=== PATIENT | male | born 1995 | race Caucasian/White ===

== ENCOUNTER 2022-07-20 20:28 | Emergency (ER) | payer BC, SELFPAY ==
[2022-07-20 20:35] VITALS: BP 152/105; PULSE 89; RESP 16; TEMP 36.1; O2SAT 100
--- NOTE | 2022-07-20 20:50 | ED_ITS ---
HPI - General Adult General Chief complaint: Skin/Abscess/Foreign Body Stated complaint: something in ear Time Seen by Provider: 07/20/22 20:33 Source: patient Mode of arrival: ambulatory Limitations: no limitations History of Present Illness HPI narrative: 26 year male coming in today complaining of something stuck in his ear. He states that he was flushing his ears with a ear flush sure that has a tiny plastic tip noted and the plastic tip got stuck in his ear and will come out. He denies any ear drainage. No difficulty hearing. Related Data Home Medications Medication Instructions Recorded Confirmed buspirone 15 mg tablet 15 mg PO BID 07/07/22 07/20/22 cholecalciferol (vitamin D3) 1,250 1,250 mcg PO DAILY 07/07/22 07/20/22 mcg (50,000 unit) capsule diclofenac sodium 1 % topical gel ml topical 07/07/22 07/07/22 lurasidone 40 mg tablet (Latuda) 40 mg PO DAILY 07/07/22 07/20/22 metoprolol tartrate 25 mg tablet 6.25 mg PO BID 07/07/22 07/20/22 mirtazapine 15 mg tablet 7.5 mg PO DAILY 07/07/22 07/20/22 naloxone 4 mg/actuation nasal spray 1 spray intranasal 07/07/22 07/07/22 naltrexone 50 mg tablet 50 mg PO 07/07/22 07/07/22 nicotine (polacrilex) 2 mg gum 2 mg buccal 07/07/22 07/07/22 nicotine 21 mg/24 hr daily patch transdermal 07/07/22 07/07/22 transdermal patch polyethylene glycol 3350 17 17 g PO 07/07/22 07/07/22 gram/dose oral powder sennosides 8.6 mg-docusate sodium tab PO 07/07/22 07/07/22 50 mg tablet (Senexon-S) Allergies Allergy/AdvReac Type Severity Reaction Status Date / Time Sulfa (Sulfonamide Allergy Verified 07/07/22 11:28 Antibiotics) vancomycin Allergy Verified 07/07/22 11:28 Review of Systems Status of ROS: Reports: 6 or more systems reviewed and unremarkable except as noted in History and below [facility] Medical History Sinus infection Social History Smoking Status: Current every day smoker Exam Narrative: Exam Narrative: Well-nourished well-developed patient in no acute distress. Alert and oriented. Answers questions appropriately. Mood and affect are appropriate. Thoughts are goal oriented and rational. No tangential or magical thinking noted. Patient speaks in full sentences without needing to catch Hisbreath. HEENT: Normocephalic atraumatic. Pupils are equally round reactive to light. Extraocular muscles are intact. Conjunctivae are moist without any icterus noted. in the left ear and patient has a small piece a visible plastic inside the ear canal. Const: Vital Signs, click to edit/add: Vital Signs - 24 hr 07/20/22 20:35 Temperature 96.9 F L Pulse Rate [Left P ulse Oximeter] 89 Respiratory Rate 16 Blood Pressure [Ri ght Upper Arm] 152/105 H Pulse Oximetry 100 Oxygen Delivery Me thod Room Air Course Course Hospital Course: An alligator was used to pull out the piece of plastic without difficulty. re- examination of the ear shows an irritated tympanic membrane, no perforation or signs of infection. Vital Signs Vital signs: Initial Vital Signs Temperature 96.9 F L 07/20/22 20:35 Temperature Source Temporal Artery Scan 07/20/22 20:35 Pulse Rate 89 07/20/22 20:35 Pulse Rhythm 07/20/22 20:35 Respiratory Rate 16 07/20/22 20:35 Blood Pressure 152/105 H 07/20/22 20:35 Blood Pressure Mean 120 07/20/22 20:35 Blood Pressure Position Sitting 07/20/22 20:35 Pulse Oximetry 100 07/20/22 20:35 Oxygen Delivery Method 07/20/22 20:35 Vital Signs Temperature 96.9 F L 07/20/22 20:35 Pulse Rate 89 07/20/22 20:35 Respiratory Rate 16 07/20/22 20:35 Blood Pressure 152/105 H 07/20/22 20:35 Pulse Oximetry 100 07/20/22 20:35 Oxygen Delivery Method 07/20/22 20:35 Temperature 96.9 F L 07/20/22 20:35 Pulse Rate 89 07/20/22 20:35 Respiratory Rate 16 07/20/22 20:35 Blood Pressure 152/105 H 07/20/22 20:35 Pulse Oximetry 100 07/20/22 20:35 Oxygen Delivery Method 07/20/22 20:35 Medical Decision Making MDM Narrative Medical decision making narrative: [age] year male with foreign body in his ear , removed per above. Discharge Plan Discharge Clinical Impression: Foreign body in ear Patient Disposition: Home, Self-Care Condition: Improved Prescriptions: No Action lurasidone [Latuda] 40 mg tablet 40 mg PO DAILY mirtazapine 15 mg tablet 7.5 mg PO DAILY Label Comments: TAKE 1 TABLET BY MOUTH AT BEDTIME buspirone 15 mg tablet 15 mg PO BID naltrexone 50 mg tablet 50 mg PO diclofenac sodium 1 % gel topical cholecalciferol (vitamin D3) 1,250 mcg (50,000 unit) capsule 1,250 mcg PO DAILY polyethylene glycol 3350 17 gram/dose powder 17 g PO sennosides-docusate sodium [Senexon-S] 8.6-50 mg tablet PO naloxone 4 mg/actuation spray,non-aerosol 1 spray intranasal nicotine 21 mg/24 hr patch 24 hour transdermal nicotine (polacrilex) 2 mg gum 2 mg buccal metoprolol tartrate 25 mg tablet 6.25 mg PO BID Follow Up/Referrals: Tex Alva MD [Primary Care Provider] - Stand Alone Forms: [employer] Info Instructions
== END 2022-07-20 21:05 | disposition home or self-care (01) ==
LOC: ED 21:01
PROVIDERS: Emergency Provider Family Medicine; PCP Family Medicine
DX: T16.2XXA Foreign body in left ear, initial encounter (principal)
CPT/HCPCS: 69200; 99283

== ENCOUNTER 2022-08-12 17:01 | Emergency (ER) | payer BC, SELFPAY ==
[2022-08-12] VITALS (31 sets, daily range): BP systolic 85–144; BP diastolic 28–97; PULSE 71–109; RESP 16–26; TEMP 36.7; O2SAT 97–100; BMI 21.0
--- NOTE | 2022-08-12 17:08 | CRLHL7_ITS ---
For Patients: As a result of the Century Cures Act, medical imaging exams and procedure reports are released immediately into your electronic medical record. You may view this report before your referring provider. If you have questions, please contact your health care provider. INDICATION: Head injury, facial wound TECHNIQUE: CT maxillofacial without contrast. COMPARISON: None FINDINGS: Facial bones: There is a fracture of the anterior wall of the left external auditory canal extending into the left temporomandibular joint, into the left temporal bone extending and through the middle ear and left mastoid air cells. Orbits and globes: Unremarkable. Globes are intact. No sign of intraorbital hemorrhage or emphysema. Sinuses: Fluid within the left middle ear and left mastoid air cells consistent with the known temporal bone fracture. Fluid in the right sphenoid sinus. Mucous retention cyst right maxillary sinus. Soft tissues: Subcutaneous air consistent with the patient`s left mastoid fracture. Small pneumocephalus. IMPRESSION: 1. Fracture of the left temporal bone extending through the left middle ear, left mastoid air cells and to the anterior wall of the left external auditory canal. Small pneumocephalus noted. Please note that all CT scans at this facility use dose modulation, iterative reconstruction, and/or weight-based dosing when appropriate to reduce radiation dose to as low as reasonably achievable. Dictated by Gomez Villafuerte MD @ 08/12/2022 6:12:45 PM (Electronically Signed)
--- NOTE | 2022-08-12 17:08 | CRLHL7_ITS ---
For Patients: As a result of the Century Cures Act, medical imaging exams and procedure reports are released immediately into your electronic medical record. You may view this report before your referring provider. If you have questions, please contact your health care provider. INDICATION: Head injury. TECHNIQUE: CT head without contrast. COMPARISON: None. FINDINGS: CSF spaces: Within normal limits for age. Brain parenchyma: The segal-white differentiation is normal. No sign of mass, hemorrhage, or midline shift. Trace pneumocephalus. Skull base and calvarium: Please refer to separate CT face regarding facial findings as well as description of the left temporal bone and mastoid fracture. The visualized orbits are grossly unremarkable. IMPRESSION: 1. Trace pneumocephalus. No acute intracranial hemorrhage or mass effect. 2. Please refer to separate CT face regarding facial findings as well as description of the left temporal bone and mastoid fracture. Please note that all CT scans at this facility use dose modulation, iterative reconstruction, and/or weight-based dosing when appropriate to reduce radiation dose to as low as reasonably achievable. Dictated by Justin Ward MD @ 08/12/2022 6:26:29 PM (Electronically Signed)
[2022-08-12] MEDS: 0.9 % SODIUM CHLORIDE 1000 ml 1,000 ML IV (18:00)
--- NOTE | 2022-08-12 18:27 | ED.NURSE ---
has had some bleeding from his left ear. father at bs. is alert and oriented. gcs 15.
--- NOTE | 2022-08-12 18:31 | ED.NURSE ---
last tetanus was 09/07/2015.
[2022-08-12] MEDS: fentaNYL 100 MCG/2 ML inj 50 MCG IVP (19:45)
[2022-08-12] MEDS: ACETAMINOPHEN 500 MG TABLET 1000 MG PO (19:47)
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
== END 2022-08-12 22:21 | disposition home or self-care (01) ==
PROVIDERS: Emergency Provider Family Medicine; PCP Family Medicine
DX: S01.111A Laceration without foreign body of right eyelid and periocular area, initial encounter (principal); H60.02 Abscess of left external ear; S02.19XA Other fracture of base of skull, initial encounter for closed fracture
CPT/HCPCS: 12011; 70450; 70486; 87070; 87186; 96374; 99284; 99291; A9270; J3010; J7030

== ENCOUNTER 2025-03-09 10:06 | Emergency (ER) | payer BC, SELFPAY ==
--- OUTSIDE RECORDS SUMMARY | 2025-03-02 12:00 | XMS_ITS | Encounter Summary ---
[facility] Address [address] [address] Care Team Providers Care Furrier Apprentice Name Role Phone Sylvie Pritchett MD Primary Care Provider [phone] Reason for Visit * Reason Comments Laceration Encounter Details Date Type Department Care Team (Late st Contact Info) Description 03/02/2025 12:00 PM CDT [facility] [address] [place] [address] [place] [address] [place] [address] Laceration of left hand without [...] encounter documented in this encounter Care Teams Furrier Apprentice Relationship Specialty Start Date End Date Sylvie Pritchett MD [address] [place] [address] PCP - General 08/26/10 documented as of this encounter
--- OUTSIDE RECORDS SUMMARY | 2025-03-09 10:09 | XMS_ITS | CCD ---
Author Name Interface, [id number] Address [address] [place] [address] [facility] Address [address] [place] [address] Reason for Visit Social History Date Name Value 12/04/2023 Sex Male
--- OUTSIDE RECORDS SUMMARY | 2025-03-09 10:09 | XMS_ITS | Clinical Summary ---
Author Organization [facility] Address [address] [place] [address] Care Team Providers Care Hourly Manager Name Role Phone Sylvie Pritchett MD Primary Care Provider [phone] Source Comments You are receiving this document as you are listed as the primary care provider,follow-up provider, or the patient has been referred to you for consultation.This is in compliance with the Medicare and[facility] Hospital[facility] EHR Incentive Program,which states Providers who transition their patient to another setting of careor provider of care or refers their patient to another provider of care shouldprovide summary care record for each transition of care or referral. 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 02/24/20 25 Active lurasidone (LATUDA) 80 MG tablet Take 1 Tablet (80 mg) by mouth daily. 02/25/20 25 Active mirtazapine (REMERON) 15 MG tablet Take 1-2 Tablets (15-30 mg) by mouth at bedtime as needed. 12/22/19 25 Active mirtazapine (REMERON) 45 MG tablet Take 1 Tablet (45 mg) by mouth daily at bedtime. 02/23/20 25 Active nicotine (NICODERM CQ) 21 MG/24HR patch 1 Patch daily. 02/16/20 25 Active ondansetron (ZOFRAN-ODT) 4 MG disintegrating tablet Take 1 Tablet (4 mg) by mouth three times a day as needed. 09/30/19 25 Active QUEtiapine (SEROQUEL) 100 MG tablet Take 1 Tablet (100 mg) by mouth daily at bedtime. 11/29/19 25 Active QUEtiapine (SEROQUEL) 25 MG tablet Take 1-2 Tablets (25-50 mg) by mouth daily as needed. 10/27/19 25 Active QUEtiapine (SEROQUEL) 50 MG tablet Take 1-2 Tablets (50-100 mg) by mouth at bedtime as needed. 02/21/20 25 Active DIRECTOR OF STUDENT AID THYROID 30 MG tablet Take 1 Tablet (30 mg) by mouth daily. Active testosterone cypionate (DEPO-TESTOSTERON E) 200 MG/ML injection Inject 1 mL (200 mg) intramuscularly every 14 days. Active traZODone (DESYREL) 50 MG tablet Take 1-2 Tablets (50-100 mg) by mouth daily at bedtime. 11/26/19 25 Active hydrOXYzine HCl (ATARAX) 50 MG tablet Take 1-2 Tablets (50-100 mg) by mouth daily as needed. 12/22/19 25 Active HYDROcodone-aceta minophen (NORCO) 10-325 MG tablet Take 1 Tablet by mouth two times daily as needed. 02/22/20 25 Active gabapentin (NEURONTIN) 100 MG capsule Take 1-2 Capsules (100-200 mg) by mouth daily as needed. 02/23/20 25 Active SUBOXONE 12-[address] under tongue two times a day. 02/24/20 25 Active Encounters Date Type Department Care Team Description 03/02/2025 12:00 PM CDT [facility] [address] [place] [address] Agusto Mandel MD Laceration of left hand without foreign body, initial encounter from Last 3 Months Immunizations Immunization Administration Dates Next Due DT Ped 09/10/2000,06/09/2000 Flu Vac (3+ yrs) 08/05/2007 Flu Vac Preserv Free (3+yrs) 03/02/2013 [id number] 04/26/2009 HepB Ped/Adol (0-18 yrs) 12/10/2001,09/10/2000,0 06/09/2000 Hib (ActHIB) 09/10/2000,06/09/2000 Hib, Unspecified Formulation 01/26/2003,12/11/19 02 Hib/HBV 12/10/2001 IPV (Polio) 01/26/2003, 2,09/10/2000,06/09/19 01 Influenza, Unspecified Formulation 05/05/2012 MMR 01/26/2003,12/10/2001 Moderna Monovalent 12+ 10/10/2020,09/12/2020 PCV20 ([id number]) 07/11/2022 PPSV23 (Pneumovax) 06/09/2000 Td (7+ yrs) 03/02/2025 Tdap 09/07/2015 Social History Tobacco Use Types Packs/Day Years Used Date Smoking Tobacco: Every Day Cigarettes Tobacco Cessation:Ready to Q uit: Not Asked; Counseling Given: Not Answered Sex and Gender Information Value Date Recorded Sex Assigned at Not on file Legal Sex Male 9:51 AM CDT Gender Identity Not on file Sexual Orientation Not on file Last Filed Vital Signs Vital Sign Reading Time Taken Comments Blood Pressure 133/104 03/02/2025 12:16 PM CDT Pulse 114 03/02/2025 12:16 PM CDT Temperature 37 C (98.6 F) 03/02/2025 12:16 PM CDT Respiratory Rate 14 03/02/2025 12:1 6 PM CDT Oxygen Saturation 98% 03/02/2025 12: 16 PM CDT Inhaled Oxygen Concentration - - Weight 32.5 kg (71 lb 9.3 oz) 07/02/2005 8:28 AM BUILDING COMPONENTS DESIGNER C: 32.5kg Height 135.3 cm (4' 5.25) 07/02/2005 8:28 AM CS T C: 135.3cm Body Mass Index 17.75 07/02/2005 8:28 AM BUILDING COMPONENTS DESIGNER Plan of Treatment Health Maintenance Due Date Last Done Comments Hep C Screening (Preventive Services) 1994 HIV Screening (Preventive Services) 2010 Adult Preventive Visit 2012 HPV Vaccine (1 - 3-dose SCDM series) 2021 COVID-19 Vaccine (3 - season) 2025 10/10/2020, 09/12/2020 Influenza Vaccine (#1) 2025 3, 05/05/2012, 08/05/2007 DTaP/Tdap/Td Vaccine (5 - Tdap) 03/02/2035 03/02/2025, 09/07/2015, 09/10/2000, Additional history exists Zoster/Shingles Vaccine (1 of 2) 2044 HepB Vaccine Completed 12/10/2001, 11/23, 09/10/2000, Additional history exists Hib Vaccine Aged Out 01/26/2003, 11/23, 12/10/2001, Additional history exists No longer eligible based on patient's age to complete this topic IPV (Polio) Vaccine Completed 01/26/2003, 12/10/2001, 09/10/2000, Additional history exists Pneumococcal Vaccine Completed 07/11/2022, 06/09/19 HepA Vaccine Aged Out No longer eligi ble based on patient's age to complete this topic MCV4 Vaccine Aged Out No longer eligi ble based on patient's age to complete this topic Meningococcal B Vaccine Aged Out No l onger eligible based on patient's age to complete this topic Insurance P Care Teams Hourly Manager Relationship Specialty Start Date End Date Sylvie Pritchett MD [address] [place] [address] PCP - General 08/26/10
--- OUTSIDE RECORDS SUMMARY | 2025-03-09 10:10 | XMS_ITS | Clinical Summary ---
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 diclofenac topical (VOLTAREN) 1 % gel 07/04/19 23 Active polyethylene glycoL (MIRALAX) 17 gram/scoop powder 07/04/19 23 Active Senexon-S 8.6-50 mg tablet 07/04/19 23 Active metoprolol tartrate (LOPRESSOR) 25 mg tabletIndication s:Tachycardia TAKE 1/4 TABLET(6.25 MG) BY MOUTH IN THE MORNING AND IN THE EVENING 45 Tablet 10/29/19 23 Active Suboxone 12-[address] 1 Film under the tongue once daily. 01/11/20 23 Active Latuda 40 mg tabletIndication s:Schizophrenia, unspecified type (HC) Take 1.5 Tablets (60 mg) by mouth with dinner. 30 Tablet 01/18/20 23 Active traZODone (DESYREL) 50 mg tabletIndication s:Sleeping difficulty Take 1-2 Tablets (50-100 mg) by mouth at bedtime. 100 Tablet 3 01/18/20 23 Active Testosterone (Testim) 50 mg/5 gram (1 %) gelIndications:L ow testosterone Apply daily to clean dry intact skin of shoulder, upper arms or abdomen. Do NOT apply to genitals. 5 g 5 05/10/20 24 Active EXPERIMENTAL PHYSICIST Thyroid 30 mg tabletIndication s:Hypothyroidism , unspecified type TAKE 1 TABLET BY MOUTH EVERY DAY 30 Tablet 2 01/04/20 25 Active testosterone cypionate (DEPO-TESTOSTERO NE) 200 mg/mL oil injectionIndicat ions:Low testosterone INJECT 1 ML INTRAMUSCULAR EVERY 2 WEEKS FOR LOW TESTOSTERONE 2 mL 5 01/21/20 25 Active Active Problems Problem Noted Date Diagnosed Date Schizophrenia, unspecified type 03/30/2024 Fabian Parkinson White pattern seen on electrocar diogram 01/17/2023 Tobacco dependence 12/25/2021 Alcohol withdrawal 12/23/2021 Social anxiety disorder 02/01/2016 MAURI (generalized anxiety disorder) 02/01/2016 Unspecified hypothyroidism 04/23/2010 Left ventricular dysfunction 04/23/2010 Overview (04/23/2010): Due to anthracycline Depression Resolved Problems Problem Noted Date Diagnosed Date Resolved Date Severe episode of recurrent major depressive disorder, without psychotic features 02/01/2016 Adjustment disorder with mix ed disturbance of emotions and conduct 10/14/2010 12/23/2021 Growth hormone deficiency 04/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 [address] [place] [phone] Samy Fierro MD Refill Request (Testosterone Cypionate) 01/01/[address] [facility] [address] [phone] Laposky, Samy, MD Refill Request (Leasing Professional Thyroid) from Last 3 Months Immunizations Immunization Administration Dates Next Due COVID-19 vaccine (Moderna 100mcg/0.5mL) PF, MDV 10/10/2020,09/12/2020 DT (Age < 7 years) 09/10/2000,06/09/2000 HIB PRP-T (ActHIB,Hiberix) 09/10/2000,06/09/2000 HIB-HepB (Comvax) 12/10/2001 Hepatitis B (Peds) 12/10/2001,09/10/2000, 001 Hepatitis B, Unspecified 09/10/2000,06/09/2000 Hib Conjugate, Unspecified 01/26/2003,,09/10/2000,2000 Inactivated Polio Vaccine 01/26/2003,,09/10/2000,2000 Influenza A (H1N1), Inactivated 04/26/2009 Influenza Virus, Unspecified 05/05/2012 Influenza, IIV3 (Age 6-35 mos) 03/02/2013 Influenza, IIV3 (Age >=3 years) 08/05/2007 Influenza, IIV4 04/26/2009 MMR 01/26/2003,12/10/2001 Pneumococcal Conj 20-valent (Prevnar 20) 07/11/2022 Pneumococcal Poly,23-Valent (Pneumovax) 06/09/2000 Td (Age >=7 Years) 01/26/2003, 2,09/10/2000,2000 Tdap 09/07/2015 Family History Medical History Relation Name Comments Asthma Father Cancer-colon No Family History Diabetes No Family History Heart Disease No Family History Hyperlipidemia No Family History Relation Name Status Comments Brother Alive Father Alive Mother Alive Sister 1 Alive Sister 2 Alive Social History Tobacco Use Types Packs/Day Years Used Date Smoking Tobacco: Every Day Cigarettes 0.5 13.8 Started: 2011 Smokeless Tobacco: Current Chew Tobacco Cessation:Ready to Q uit: Yes; Counseling Given: No Comments:Cewing tobacco every once in a while. Alcohol Use Standard Drinks/Week Comments Not Currently 0 (1 standard drink = 0.6 oz pur e alcohol) PHQ-2 Answer Date Recorded PHQ-2 TOTAL SCORE 5 03/29/2024 Social Connections Answer Date Recorded Do you often feel lonely or isolated from those around you? 0 03/29/2024 Financial Resource Strain Answer Date R ecorded Difficulty of Paying Living Expenses 3 01/17/2023 Difficulty of Paying Living Expenses Not on file 01/17/2023 Food Insecurity Answer Date Recorded Do you worry your food will run out before you are able to buy more? 1 03/29/2024 Transportation Needs Answer Date Record ed Does lack of transportation keep you from medica l appointments? 1 03/29/2024 Does lack of transportation keep you from work, meetings or getting things that you need? 1 03/29/2024 Housing Stability Answer Date Recorded What is your housing situation today? 1 03/29/2024 Utilities Answer Date Recorded Do you have trouble paying f or utilities (for example, heat, electricity, water, phone)? 1 03/29/2024 Sex and Gender Information Value Date Recorded Sex Assigned at Not on file Legal Sex Male 5:20 AM PEDIATRIC SPEECH THERAPIST Gender Identity Not on file Sexual Orientation Not on file Obstetrics History Last Filed Vital Signs Vital Sign Reading Time Taken Comments Blood Pressure 132/78 03/29/2024 2:03 PM PEDIATRIC SPEECH THERAPIST Pulse 113 03/29/2024 2:03 PM PEDIATRIC SPEECH THERAPIST Temperature 36.7 C (98.1 F) 03/29/2024 2:03 PM PEDIATRIC SPEECH THERAPIST Respiratory Rate 16 03/29/2024 2:03 PM PEDIATRIC SPEECH THERAPIST Oxygen Saturation 99% 03/29/2024 2:03 PM PEDIATRIC SPEECH THERAPIST Inhaled Oxygen Concentration - - Weight 71.2 kg (157 lb) 03/29/2024 2:03 PM PEDIATRIC SPEECH THERAPIST Height 167.6 cm (5' 6) 03/29/2024 2:03 PM PEDIATRIC SPEECH THERAPIST Body Mass Index 25.34 03/29/2024 2:03 PM PEDIATRIC SPEECH THERAPIST Plan of Treatment Health Maintenance Due Date Last Done Comments HIV for age 15-65 2009 Hepatitis C screening for ag e 18-79 2012 HPV series for age 9-45 (1 - 3-dose SCDM series) 2021 COVID-19 vaccine series ( - season) 2025 10/10/2020, 09/12/2020 Influenza Vaccine (#1) 2025 3, 05/05/2012, 04/26/2009, Additional history exists BMI (ht and wt on same day) for age 18+ 03/29/2025 03/29/2024, 12/05/2023, 02/25/2022, Additional history exists Depression screening for age 12+ 04/02/2025 04/02/2024, 04/01/2024, 03/31/2024, Additional history exists Tetanus booster 09/06/2025 09/07/2015, 07/2002, 12/10/2001, Additional history exists RSV vaccine for adults or (1 - 1-dose 75+ series) 2069 Hepatitis B series for 19+ Completed 12/10, 12/10/2001, 09/10/2000, Additional history exists Pneumococcal series for age 6-49 Completed 07/11/19, 06/09/2000 Insurance [place] [phone] [place] [address] [place] [phone] [place] [address] [place] [address] Advance Directives * Full Code (Latest Code Status on File) Date Activated Date Inactivated Comments 12/23/2021 4:09 PM 12/27/2021 12:25 PM Question Answer Comments Code Status Discussion: Other (specify in commen ts): * Full Code Date Activated Date Inactivated Comments 10/14/2010 4:13 PM 10/17/2010 3:02 PM Care Teams Mortgage Funder Relationship Specialty Start Date End Date Samy Fierro MD [address] [id number] PCP - General Family Practice 07/08/24
[2025-03-09 10:32] VITALS: BP 153/97; PULSE 107; RESP 18; TEMP 37; O2SAT 93; BMI 29.1
--- NOTE | 2025-03-09 11:28 | ED.UPPEXIN ---
HPI - Extremity Injury (Upper) General Chief Complaint: Extremity Pain/Injury, Upper Stated Complaint: L hand infections Time Seen by Provider: 03/09/25 11:13 History of Present Illness HPI narrative: This 29-year-old male comes in with pain and swelling and erythema in his left hand. He states that he accidentally cut his hand near the 5th MP joint about a week ago. He had stitches placed. Since then he developed swelling and the stitches opened up and there was some drainage. He also had pain and redness and swelling in his left thumb. The skin on his thumb is opened and drained some purulent fluid also. He does not report any fevers. He states that he is otherwise in good health. Related Data Home Medications ?Medication ?Instructions ?Recorded ?Confirmed diclofenac sodium 1 % topical gel 2 g topical DAILY PRN 07/07/22 01/29/24 metoprolol tartrate 25 mg tablet 6.25 mg PO BID 07/07/22 03/09/25 naloxone 4 mg/actuation nasal spray 1 spray intranasal 07/07/22 01/29/24 naltrexone 50 mg tablet 50 mg PO Q24H 07/07/22 01/29/24 nicotine (polacrilex) 2 mg gum 2 mg buccal Q8H PRN 07/07/22 01/29/24 nicotine 21 mg/24 hr daily 1 patch transdermal DAILY 07/07/22 01/29/24 transdermal patch polyethylene glycol 3350 17 17 g PO DAILY PRN 07/07/22 01/29/24 gram/dose oral powder sennosides 8.6 mg-docusate sodium 1 tab-cap PO DAILY 07/07/22 01/29/24 50 mg tablet (Senexon-S) lurasidone 60 mg tablet (Latuda) 80 mg PO QPM 08/12/22 03/09/25 buprenorphine 12 mg-naloxone 3 mg 1 film buccal DAILY 03/09/25 03/09/25 sublingual film (Suboxone) gabapentin 100 mg capsule 100 - 200 mg PO DAILY PRN 03/09/25 03/09/25 hydrocodone-acetaminophen .ROUTE 03/09/25 mirtazapine 15 mg tablet mg HS 03/09/25 quetiapine 100 mg tablet 100 mg PO QPM 03/09/25 quetiapine 50 mg tablet 50 - 100 mg PO QPM PRN 03/09/25 03/09/25 testosterone cypionate 200 mg/mL 200 mg IM Q2W 03/09/25 03/09/25 intramuscular oil thyroid (pork) 30 mg tablet (MANUFACTURING SUPERVISOR 2ND SHIFT 30 mg PO DAILY 03/09/25 03/09/25 Thyroid) Previous Rx's ?Medication ?Instructions ?Recorded tobramycin 0.3 %-dexamethasone 0.1 4 drp ophthalmic (eye) TID 10 days 09/11/22 % eye drops,suspension (TobraDex) #10 mL fluticasone propionate 50 2 spray intranasal QDAY 30 days 01/29/24 mcg/actuation nasal #16 grams spray,suspension amoxicillin 875 mg-potassium 1 tab PO BID #14 tabs 03/09/25 clavulanate 125 mg tablet hydrocodone 5 mg-acetaminophen 325 1 tab PO Q4-6H PRN pain #10 tabs 03/09/25 mg tablet Allergies Allergy/AdvReac Type Severity Reaction Status Date / Time Sulfa (Sulfonamide Allergy Verified 03/09/25 10:44 Antibiotics) vancomycin Allergy Verified 03/09/25 10:44 Review of Systems Status of ROS: Reports: 10 or more systems reviewed and unremarkable except as noted in History and below Narrative: Constitutional: No fevers, no weight gain or loss. Eyes: No discharge. No vision changes. HENT: No congestion, no sore throat, no ear pain. Cardiovascular: No chest pain, no palpitations. Respiratory: No shortness of breath, no wheezes, no cough. Gastrointestinal: No abdominal pain, no vomiting, no diarrhea. Genitourinary: No dysuria, no hematuria. Musculoskeletal: Normal range of motion. Left hand has significant swelling with marked erythema of his thumb. The thumb has an opening on the distal portion where apparently some drainage had occurred but none currently. There is a laceration and near the 5th MP joint that is slightly open and not currently draining. Skin: No rashes, no pruritis. Neurological: No dizziness, weakness, sensory change, speech change. Endo/Heme/Allergies: No bruising or bleeding. No polydipsia. Pysch: no suicidality, no anxiety, no insomnia. All other systems reviewed and are negative. [facility] Medical History Sinus infection Social History Smoking Status: Current every day smoker What tobacco products do you use: cigarettes Smoking packs per day: 0.5 Smoking cigarettes per day: 10.0 Years smoked: 11 Smoking pack-years: 5.50 Do you use any of these nicotine containing products: None Second hand tobacco smoke exposure: Yes How often do you have a drink containing alcohol: monthly or less How many standard drinks containing alcohol do you have on a typical day: 1 or 2 How often do you have six or more drinks on one occasion: Never AUDIT-C Alcohol total score: 1 Non-prescribed substance use: marijuana (any form) and amphetamines/methamphetamines Non-prescribed substance use details: [facility] service: No Exam Const: Vital Signs, click to edit/add: Vital Signs - 24 hr 03/09/25 10:32 Temperature 98.6 F Pulse Rate [Right Pulse Oximeter] 107 H Respiratory Rate 18 Blood Pressure [Ri ght Upper Arm] 153/97 H Pulse Oximetry 93 Oxygen Delivery Me thod Room Air Course Vital Signs Vital signs: Initial Vital Signs Temperature 98.6 F 03/09/25 10:32 Temperature Source Temporal Artery Scan 03/09/25 10:32 Pulse Rate 107 H 03/09/25 10:32 Respiratory Rate 18 03/09/25 10:32 Blood Pressure 153/97 H 03/09/25 10:32 Blood Pressure Mean 115 H 03/09/25 10:32 Blood Pressure Position Sitting 03/09/25 10:32 Pulse Oximetry 93 03/09/25 10:32 Oxygen Delivery Method Room Air 03/09/25 10:32 Vital Signs Temperature 98.6 F 03/09/25 10:32 Pulse Rate 107 H 03/09/25 10:32 Respiratory Rate 18 03/09/25 10:32 Blood Pressure 153/97 H 03/09/25 10:32 Pulse Oximetry 93 03/09/25 10:32 Oxygen Delivery Method Room Air 03/09/25 10:32 Temperature 98.6 F 03/09/25 10:32 Pulse Rate 107 H 03/09/25 10:32 Respiratory Rate 18 03/09/25 10:32 Blood Pressure 153/97 H 03/09/25 10:32 Pulse Oximetry 93 03/09/25 10:32 Oxygen Delivery Method Room Air 03/09/25 10:32 MDM - Extremity Injury (Upper) MDM Narrative Medical decision making narrative: This patient has infection in his right hand secondary to a wound. He has significant pain and swelling. There is no extension of symptoms beyond his hand. He has normal vital signs. I did advise him regarding worsening signs and symptoms that would indicate need for return re-evaluation. He did receive prescription for Augmentin and some tablets of [place]. Discharge Plan Discharge Clinical Impression: Wound infection Patient Disposition: Home, Self-Care Condition: Unchanged Additional Instructions: Take medication as prescribed. Follow up with MD return if worsening symptoms occur. Prescriptions: New hydrocodone-acetaminophen 5-325 mg tablet 1 tab PO Q4-6H PRN (Reason: pain) Qty: 10 0RF amoxicillin-pot clavulanate 875-125 mg tablet 1 tab PO BID Qty: 14 0RF No Action fluticasone propionate 50 mcg/actuation spray,suspension 2 spray intranasal QDAY 30 Days Qty: 16 11RF Rx Instructions: administer into each nostril naltrexone 50 mg tablet 50 mg PO Q24H diclofenac sodium 1 % gel 2 g topical DAILY PRN polyethylene glycol 3350 17 gram/dose powder 17 g PO DAILY PRN sennosides-docusate sodium [Senexon-S] 8.6-50 mg tablet 1 tab-cap PO DAILY naloxone 4 mg/actuation spray,non-aerosol 1 spray intranasal nicotine 21 mg/24 hr patch 24 hour 1 patch transdermal DAILY nicotine (polacrilex) 2 mg gum 2 mg buccal Q8H PRN metoprolol tartrate 25 mg tablet 6.25 mg PO BID tobramycin-dexamethasone [TobraDex] 0.3-0.1 % drops,suspension 4 drp ophthalmic (eye) TID 10 Days Qty: 10 2RF Rx Instructions: 4 drops to left ear three times a day for 10 days lurasidone [Latuda] 60 mg tablet 80 mg PO QPM buprenorphine-naloxone [Suboxone] 12-3 mg film 1 film buccal DAILY quetiapine 100 mg tablet 100 mg PO QPM mirtazapine 15 mg tablet HS testosterone cypionate 200 mg/mL oil 200 mg IM Q2W quetiapine 50 mg tablet 50 - 100 mg PO QPM PRN thyroid (pork) [MANUFACTURING SUPERVISOR 2ND SHIFT Thyroid] 30 mg tablet 30 mg PO DAILY hydrocodone-acetaminophen .ROUTE gabapentin 100 mg capsule 100 - 200 mg PO DAILY PRN Follow Up/Referrals: Ailabouni,Tex D, MD [Staff Physician, Family Practice] Stand Alone Forms: [employer] Info Instructions
--- OUTSIDE RECORDS SUMMARY | 2025-03-09 11:34 | XMS_ITS | CCD ---
Author Name Interface, [id number] lity Address [address] [place] [id number] [facility] Address [address] [place] [address] Reason for Visit Social History Date Name Value 12/04/2023 Sex Male
--- OUTSIDE RECORDS SUMMARY | 2025-03-09 11:34 | XMS_ITS | CCD ---
Author Name Interface, [id number] lity Address [address] [place] [address] [facility] Address [address] [place] [id number] Reason for Visit Social History Date Name Value 12/04/2023 Sex Male
== END 2025-03-09 11:52 | disposition home or self-care (01) ==
PROVIDERS: Emergency Provider Emergency Medicine Emergency Medical Services
DX: T81.41XA Infection following a procedure, superficial incisional surgical site, initial encounter (principal); Y84.8 Other medical procedures as the cause of abnormal reaction of the patient, or of later complication, without mention of misadventure at the time of the procedure
CPT/HCPCS: 99283; 99284

== ENCOUNTER 2025-03-16 14:44 | Emergency (ER) | payer BC, SELFPAY ==
--- OUTSIDE RECORDS SUMMARY | 2025-03-02 12:00 | XMS_ITS | Encounter Summary ---
[facility] Organization [facility] Address [address], [place] [address] Care Team Providers Care Doll Eye Setter Name Role Phone Sylvie Pritchett MD Primary Care Provider [phone] Reason for Visit * Reason Comments Laceration Encounter Details Date Type Department Care Team (Late st Contact Info) Description 03/02/2025 12:00 PM CDT [facility] [address] [place] [address] [place] [address] [place] [address] Laceration of left hand without foreign body, initial encounter Social History Tobacco Use Types Packs/Day Years Used Date Smoking Tobacco: Every Day Cigarettes Tobacco Cessation:Ready to Q uit: Not Asked; Counseling Given: Not Answered Sex and Gender Information Value Date Recorded Sex Assigned at Not on file Legal Sex Male 9:51 AM CDT Gender Identity Not on file Sexual Orientation Not on file documented as of this encounter Last Filed Vital Signs Vital Sign Reading Time Taken Comments Blood Pressure 133/104 03/02/2025 12:16 PM CDT Pulse 114 03/02/2025 12:16 PM CDT Temperature 37 C (98.6 F) 03/02/2025 12:16 PM CDT Respiratory Rate 14 03/02/2025 12:16 PM CDT Oxygen Saturation 98% 03/02/2025 12:16 PM CDT Inhaled Oxygen Concentration - - Weight - - Height - - Body Mass Index - - documented in this encounter Progress Notes * Agusto Mandel MD - 03/02/2025 12:00 PM CDT Patient presents to Urgent Care with a laceration/wound to the left hand. Laceration/Wound location: left hand. Pain is 3/10. Injury occurred: Today at approximately 1100. The laceration/wound was caused by knife, dirty. Cutting cardboard. Loss of consciousness? If yes, note length: No. Tetanus Status: < 10 years ago. Blood thinners/anticoagulants?: No . Work related?: No . Is the wound actively bleeding?: No . If yes, was a pressure dressing applied?: Yes . Patient requests an excuse letter for work/school: Leila Gibbons R.N. 03/02/2025 12:13 PM SUBJECTIVE: 29 y.o. male sustained laceration of hand 2 hours ago. Nature of injury: With cleaned knife. Tetanus vaccination status reviewed: Td vaccination indicated and given today. OBJECTIVE: Patient appears well, vitals are normal. Laceration 5 cm noted. Description: clean wound edges, no foreign bodies. Neurovascular and tendon structures are intact. Neurological that is intact pulse normal no indication that is involvement of nerve ,tendon or vascular component ASSESSMENT: Laceration as described. Was stitch it with 4-0 Ethilon P 2 PLAN: Anesthesia with 1% Lidocaine without Epinephrine. Wound cleansed, debrided of visible foreign material and necrotic tissue, and sutured. Antibiotic ointment and dressing applied. Wound care instructions provided. Observe for any signs of infection or other problems. Return for suture removal in 11 days. Keep it dry clean apply Vaseline on it concern come back anytime otherwise remove the suture as above documented in this encounter Nursing Notes * Adriana Gleason RN - 03/02/2025 12:00 PM CDT Patient presents to Urgent Care with a laceration/wound to the left hand. Laceration/Wound location: left hand. Pain is 3/10. Injury occurred: Today at approximately 1100. The laceration/wound was caused by knife, dirty. Cutting cardboard. Loss of consciousness? If yes, note length: No. Tetanus Status: < 10 years ago. Blood thinners/anticoagulants?: No . Work related?: No . Is the wound actively bleeding?: No . If yes, was a pressure dressing applied?: Yes . Patient requests an excuse letter for work/school: No Adriana Gibbons R.N. 03/02/2025 12:13 PM documented in this encounter Plan of Treatment Not on file documented as of this encounter Visit Diagnoses Diagnosis Laceration of left hand without foreign body, initial encounter documented in this encounter Care Teams Doll Eye Setter Relationship Specialty Start Date End Date Sylvie Pritchett MD [address] [place] [address] PCP - General 08/26/10 documented as of this encounter
--- OUTSIDE RECORDS SUMMARY | 2025-03-16 14:48 | XMS_ITS | CCD ---
Author Name Interface, [id number] lity Address [address] [place] [address] [facility] Address [address] [place] [address] Reason for Visit Social History Date Name Value 12/04/2023 Sex Male
--- OUTSIDE RECORDS SUMMARY | 2025-03-16 14:48 | XMS_ITS | Clinical Summary ---
Author Organization [facility] Address [address] [place] [id number] Care Team Providers Care Knot Picker Cloth Name Role Phone Samy Fierro MD Primary Care Provider Allergies Active Allergy Reactions Criticality Noted Date Comments Sulfa (Sulfonamide Antibiotics) Rash 03/27 Vancomycin 09/23/2008 Tuan Syndrome Medications * This document contains information received from the source organization and may not represent a complete record from that organization. diclofenac topical (VOLTAREN) 1 % gel 023 Active polyethylene glycoL (MIRALAX) 17 gram/scoop powder 023 Active Senexon-S 8.6-50 mg tablet 023 Active metoprolol tartrate (LOPRESSOR) 25 mg tabletIndicatio ns:Tachycardia TAKE 1/4 TABLET(6.25 MG) BY MOUTH IN THE MORNING AND IN THE EVENING 45 Tablet 023 Active Suboxone 12-[address] 1 Film under the tongue once daily. 023 Active Latuda 40 mg tabletIndicatio ns:Schizophreni a, unspecified type (HC) Take 1.5 Tablets (60 mg) by mouth with dinner. 30 Tablet 023 Active traZODone (DESYREL) 50 mg tabletIndicatio ns:Sleeping difficulty Take 1-2 Tablets (50-100 mg) by mouth at bedtime. 100 Tablet 3 023 Active Testosterone (Testim) 50 mg/5 gram (1 %) gelIndications: Low testosterone Apply daily to clean dry intact skin of shoulder, upper arms or abdomen. Do NOT apply to genitals. 5 g 5 024 Active testosterone cypionate (DEPO-TESTOSTER ONE) 200 mg/mL oil injectionIndica tions:Low testosterone INJECT 1 ML INTRAMUSCULAR EVERY 2 WEEKS FOR LOW TESTOSTERONE 2 mL 5 025 Active thyroid (DOUGH SHEETER Thyroid) 30 mg tabletIndicatio ns:Hypothyroidi sm, unspecified type TAKE 1 TABLET BY MOUTH EVERY DAY 90 Tablet 025 Active DOUGH SHEETER Thyroid 30 mg tabletIndicatio ns:Hypothyroidi sm, unspecified type TAKE 1 TABLET BY MOUTH EVERY DAY 30 Tablet 2 025 2024 Discontinued Active Problems Problem Noted Date Diagnosed Date [...] Encounters Date Type Department Care Team Description 03/15/2025 Refill [facility] [address] [phone] Samy Fierro MD Refill Request (Pants Presser Thyroid) 02/03/2025 1:45 PM CDT Orders Only [facility] [address] [address] Lab, [place] [facility] 02/03/2025 Travel 01/19/2025 Refill [facility] [address] [phone] Samy Fierro MD Refill Request (Testosterone Cypionate) 01/01/2025 Refill [facility] [address] [phone] Samy Fierro MD Refill Request (Pants Presser Thyroid) from Last 3 Months Immunizations Immunization Administration Dates Next Due COVID-19 vaccine (Moderna 100mcg/0.5mL) PF MDV 10/10/2020,09/12/2020 DT (Age < 7 years) [...] on file Legal 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 Gender Identity Not on file Sexual Orientation Not on file Obstetrics History Last Filed Vital Signs Vital Sign Reading Time Taken Comments Blood Pressure 132/78 03/29/2024 2:03 PM FLIGHT PHYSICIAN Pulse 113 03/29/2024 2:03 PM FLIGHT PHYSICIAN Temperature 36.7 C (98.1 F) 03/29/2024 2:03 PM FLIGHT PHYSICIAN Respiratory Rate 16 03/29/2024 2:03 PM FLIGHT PHYSICIAN Oxygen Saturation 99% 03/29/2024 2:03 PM FLIGHT PHYSICIAN Inhaled Oxygen Concentration - - Weight 71.2 kg (157 lb) 03/29/2024 2:03 PM FLIGHT PHYSICIAN Height 167.6 cm (5' 6) 03/29/2024 2:03 PM FLIGHT PHYSICIAN Body Mass Index 25.34 03/29/2024 2:03 PM FLIGHT PHYSICIAN Plan of Treatment Health Maintenance Due Date Last Done Comments HIV for age 15-65 2009 Hepatitis C screening for ag e 18-79 2012 HPV series for age 9-45 (1 - 3-dose SCDM series) 2021 COVID-19 vaccine series (3 - 2024- season) 2025 10/10/2020, 09/12/2020 Influenza Vaccine (#1) 2025 3, 05/05/2012, 04/26/2009, Additional history exists BMI (ht and wt on same day) for age 18+ 03/29/2025 03/29/2024, 12/05/2023, 02/25/2022, Additional history exists Depression screening for age 12+ 04/02/2025 04/02/2024, 04/01/2024, 03/31/2024, Additional history exists Tetanus booster 09/06/2025 09/07/2015, 0907/2002, 12/10/2001, Additional history exists RSV vaccine for adults or (1 - 1-dose 75+ series) 2069 Hepatitis B series for 19+ Completed 12/10, 12/10/2001, 09/10/2000, Additional history exists Pneumococcal series for age 6-49 Completed 07/11/19, 06/09/2000 [address] [facility] [place] [address] [address] [facility] [place] [address] [address] [facility] Advance Directives * Full Code (Latest Code Status on File) Date Activated Date Inactivated Comments 12/23/2021 4:09 PM 12/27/2021 12:25 PM Question Answer Comments Code Status Discussion: Other (specify in commen ts): * Full Code Date Activated Date Inactivated Comments 10/14/2010 4:13 PM 10/17/2010 3:02 PM Care Teams Knot Picker Cloth Relationship Specialty Start Date End Date Samy Fierro MD [address] [id number] PCP - General Family Practice 07/08/24
--- OUTSIDE RECORDS SUMMARY | 2025-03-16 14:48 | XMS_ITS | Clinical Summary ---
Author Organization [facility] Address [address] [place] [address] Care Team Providers Care Seismograph Chief Name Role Phone Sylvie Pritchett MD Primary Care Provider [phone] Source Comments You are receiving this document as you are listed as the primary care provider,follow-up provider, or the patient has been referred to you for consultation.This is in compliance with the Medicare and[facility] EHR Incentive Program,which states Providers who transition their patient to another setting of careor provider of care or refers their patient to another provider of care shouldprovide summary care record for each transition of care or referral. [facility] Allergies Active Allergy Reactions Criticality Noted Date [...] at bedtime as needed. 02/21/20 25 Active VEGETABLE LOADER THYROID 30 MG tablet Take 1 Tablet [...] Description 03/02/2025 12:00 PM CDT [facility] [address] [place] [address] Agusto Mandel MD Laceration of left hand without foreign body, initial encounter from Last 3 Months Immunizations Immunization Administration Dates Next Due DT Ped 09/10/2000,06/09/2000 Flu Vac (3+ yrs) 08/05/2007 Flu Vac Preserv Free (3+yrs) 03/02/2013 [id number] 04/26/2009 HepB Ped/Adol (0-18 yrs) 12/10/2001,09/10/2000,0 06/09/2000 Hib (ActHIB) 09/10/2000,06/09/2000 Hib, Unspecified Formulation 01/26/2003,12/11/19 02 Hib/HBV 12/10/2001 IPV (Polio) 01/26/2003, 2,09/10/2000,06/09/19 01 Influenza, Unspecified Formulation 05/05/2012 MMR 01/26/2003,12/10/2001 Moderna Monovalent 12+ 10/10/2020,09/12/2020 PCV20 ([id number]) 07/11/2022 PPSV23 (Pneumovax) 06/09/2000 Td (7+ yrs) [...] (71 lb 9.3 oz) 07/02/2005 8:28 AM COVER OPERATOR C: 32.5kg Height 135.3 cm (4' 5.25) 07/02/2005 8:28 AM CS T C: 135.3cm Body Mass Index 17.75 07/02/2005 8:28 AM COVER OPERATOR Plan of Treatment Health Maintenance Due Date [...] complete this topic Insurance P Care Teams Seismograph Chief Relationship Specialty Start Date End Date Sylvie Pritchett MD [address] [place] [address] PCP - General 08/26/10
[2025-03-16 14:53] VITALS: BP 169/100; PULSE 102; RESP 20; TEMP 36.9; O2SAT 97; BMI 26.3
--- NOTE | 2025-03-16 15:05 | CRLHL7_ITS ---
For Patients: As a result of the Cures Act, medical imaging exams and procedure reports are released immediately into your electronic medical record. You may view this report before your referring provider. If you have questions, please contact your health care provider. Indication: Rule out foreign body Technique: Three views of the left thumb Comparison: None Findings/Impression: No acute fracture or malalignment. The bones are unremarkable. Suspected small laceration/abrasion along the palmar aspect of the distal thumb with minimal soft tissue swelling of the distal thumb. No subcutaneous gas or radiopaque foreign bodies. Dictated by Jatinder Frey MD @ 03/16/2025 3:59:41 PM (Electronically Signed)
--- NOTE | 2025-03-16 15:11 | ED.GENADULT ---
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 He does not recall any foreign body no x-ray was taken apparently he reports he is up-to-date on tetanus. He is generally pretty healthy he is on a bunch of medications for mental health issues. He works repairing cars. He has been keeping it covered and it is a little bit macerated and from the moisture of a bandage. Related Data Home Medications ?Medication ?Instructions ?Recorded ?Confirmed diclofenac sodium 1 % topical gel 2 g topical DAILY PRN 07/07/22 03/16/25 metoprolol tartrate 25 mg tablet 6.25 mg PO BID 07/07/22 03/16/25 naloxone 4 mg/actuation nasal spray 1 spray intranasal 07/07/22 01/29/24 naltrexone 50 mg tablet 50 mg PO Q24H 07/07/22 03/16/25 nicotine (polacrilex) 2 mg gum 2 mg buccal Q8H PRN 07/07/22 03/16/25 nicotine 21 mg/24 hr daily 1 patch transdermal DAILY 07/07/22 03/16/25 transdermal patch polyethylene glycol 3350 17 17 g PO DAILY PRN 07/07/22 03/16/25 gram/dose oral powder sennosides 8.6 mg-docusate sodium 1 tab-cap PO DAILY 07/07/22 03/16/25 50 mg tablet (Senexon-S) lurasidone 60 mg tablet (Latuda) 80 mg PO QPM 08/12/22 03/16/25 buprenorphine 12 mg-naloxone 3 mg 1 film buccal DAILY 03/09/25 03/16/25 sublingual film (Suboxone) gabapentin 100 mg capsule 100 - 200 mg PO DAILY PRN 03/09/25 03/16/25 hydrocodone-acetaminophen .Route 03/09/25 mirtazapine 15 mg tablet mg HS 03/09/25 quetiapine 100 mg tablet 100 mg PO QPM 03/09/25 03/16/25 quetiapine 50 mg tablet 50 - 100 mg PO QPM PRN 03/09/25 03/16/25 testosterone cypionate 200 mg/mL 200 mg IM Q2W 03/09/25 03/16/25 intramuscular oil thyroid (pork) 30 mg tablet (DERMATOLOGY PROCEDURAL PHYSICIAN 30 mg PO DAILY 03/09/25 03/16/25 Thyroid) clonidine HCl 0.1 mg tablet 0.1 mg PO 3XD PRN anxiety 03/16/25 03/16/25 hydrocodone 10 mg-acetaminophen 1 tab PO BID PRN severe pain 03/16/25 03/16/25 325 mg tablet Previous Rx's ?Medication ?Instructions ?Recorded tobramycin 0.3 %-dexamethasone 0.1 4 drp ophthalmic (eye) TID 10 days 09/11/22 % eye drops,suspension (TobraDex) #10 mL fluticasone propionate 50 2 spray intranasal QDAY 30 days 01/29/24 mcg/actuation nasal #16 grams spray,suspension ketorolac 10 mg tablet 10 mg PO TID 5 days #15 tabs 03/09/25 clindamycin HCl 150 mg capsule 150 mg PO TID 10 days #30 caps 03/16/25 ketorolac 10 mg tablet 10 mg PO Q8H PRN pain 4 days #14 03/16/25 tabs Allergies Allergy/AdvReac Type Severity Reaction Status Date / Time Sulfa (Sulfonamide Allergy Verified 03/16/25 14:57 Antibiotics) vancomycin Allergy Verified 03/16/25 14:57 Review of Systems Status of ROS: Reports: 6 or more systems reviewed and unremarkable except as noted in History and below [facility] Medical History Sinus infection ?J32.9 - Chronic sinusitis, unspecified (ICD-10) Social History Smoking Status: Current every day smoker What tobacco products do you use: cigarettes Smoking packs per day: 0.5 Smoking cigarettes per day: 10.0 Years smoked: 11 Smoking pack-years: 5.50 Do you use any of these nicotine containing products: None Second hand tobacco smoke exposure: Yes How often do you have a drink containing alcohol: monthly or less How many standard drinks containing alcohol do you have on a typical day: 1 or 2 How often do you have six or more drinks on one occasion: Never AUDIT-C Alcohol total score: 1 Non-prescribed substance use: marijuana (any form) and amphetamines/methamphetamines Non-prescribed substance use details: [facility]: No Exam Narrative: Exam Narrative: Objective: Afebrile blood pressure little elevated Left thumb shows a macerated wound with some central healing there is a little bit of purulence in the middle that appears like it is easily removable I do not detect any foreign body but I think an x-ray be appropriate. Distal CMS intact the general skin in the area is macerated little bit from being wet. Const: Vital Signs, click to edit/add: Vital Signs - 24 hr 03/16/25 14:53 03/16/25 15:26 Temperature 98.4 F Pulse Rate [Pulse Oximeter] 102 H 99 Respiratory Rate 20 Blood Pressure [Ri ght Upper Arm] 169/100 H Pulse Oximetry 97 Oxygen Delivery Me thod Room Air Course Vital Signs Vital signs: Initial Vital Signs Temperature 98.4 F 03/16/25 14:53 Temperature Source Temporal Artery Scan 03/16/25 14:53 Pulse Rate 102 H 03/16/25 14:53 Respiratory Rate 20 03/16/25 14:53 Blood Pressure 169/100 H 03/16/25 14:53 Blood Pressure Mean 123 H 03/16/25 14:53 Pulse Oximetry 97 03/16/25 14:53 Oxygen Delivery Method Room Air 03/16/25 14:53 Vital Signs Temperature 98.4 F 03/16/25 14:53 Pulse Rate 102 H 03/16/25 14:53 Respiratory Rate 20 03/16/25 14:53 Blood Pressure 169/100 H 03/16/25 14:53 Pulse Oximetry 97 03/16/25 14:53 Oxygen Delivery Method Room Air 03/16/25 14:53 Temperature 98.4 F 03/16/25 14:53 Pulse Rate 99 03/16/25 15:26 Respiratory Rate 20 03/16/25 14:53 Blood Pressure 169/100 H 03/16/25 14:53 Pulse Oximetry 97 03/16/25 14:53 Oxygen Delivery Method Room Air 03/16/25 14:53 Medications Administered Medications: Discontinued Medications Generic Name Dose Route Start Last Admin Trade Name Freq PRN Reason Stop Dose Admin Ceftriaxone Sodium 500 mg 03/16/25 15:05 03/16/25 15:27 Ceftriaxone 500 Mg Vial IM 03/16/25 15:06 500 mg ONCE ONE Administration Lidocaine HCl 1 ml 03/16/25 15:05 03/16/25 15:27 Lidocaine 1% 5 Ml (Pf) 5 Ml Vial IM 1 ml DIRECTED PRN Administration Pain Medical Decision Making MDM Narrative Medical decision making narrative: 29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 At this point I am going to switch him to clindamycin 150 t.i.d. times 10 days, have him off work for the next 4-5 days to allow this to stay dry uncovered and he can soak in soapy water a couple times a day with set him up to see a clinic appointment in follow-up. Will confer confirm his positive update tetanus status. And have written him an off-work note until 03/22/2025. I think this really needs a chance to heal in its can be difficult with his job unless he is not using the hand. Also give the patient Rocephin 500 mg IM now. Will give him Toradol for discomfort. Addendum 3:40 p.m.: The patient has an x-ray that I reviewed independently feel there is no foreign body noted . Clindamycin and Toradol as described. Warm soaks, off work, follow up with primary care as scheduled. Discharge Plan Discharge Clinical Impression: Cellulitis Patient Disposition: Home, Self-Care Condition: Stable Additional Instructions: Soak the thumb in warm soapy water 3 or 4 times a day, off work for 3-4 days. Recheck with your primary care doctor at that time to make sure it is improving. I will given antibiotic for home for the next 10 days. Toradol as needed for pain Follow up appointment is scheduled at the [facility] on 03/22 with a 9am appointment time. Please check in at 8:45am. If you have any questions or need to reschedule, please call [phone]. Activity Level: Light activity Discharge Diet: Regular Prescriptions: New clindamycin HCl 150 mg capsule 150 mg PO TID 10 Days Qty: 30 0RF ketorolac 10 mg tablet 10 mg PO Q8H PRN (Reason: pain) 4 Days Qty: 14 0RF No Action fluticasone propionate 50 mcg/actuation spray,suspension 2 spray intranasal QDAY 30 Days Qty: 16 11RF Rx Instructions: administer into each nostril naltrexone 50 mg tablet 50 mg PO Q24H diclofenac sodium 1 % gel 2 g topical DAILY PRN polyethylene glycol 3350 17 gram/dose powder 17 g PO DAILY PRN sennosides-docusate sodium [Senexon-S] 8.6-50 mg tablet 1 tab-cap PO DAILY naloxone 4 mg/actuation spray,non-aerosol 1 spray intranasal nicotine 21 mg/24 hr patch 24 hour 1 patch transdermal DAILY nicotine (polacrilex) 2 mg gum 2 mg buccal Q8H PRN metoprolol tartrate 25 mg tablet 6.25 mg PO BID tobramycin-dexamethasone [TobraDex] 0.3-0.1 % drops,suspension 4 drp ophthalmic (eye) TID 10 Days Qty: 10 2RF Rx Instructions: 4 drops to left ear three times a day for 10 days lurasidone [Latuda] 60 mg tablet 80 mg PO QPM buprenorphine-naloxone [Suboxone] 12-3 mg film 1 film buccal DAILY quetiapine 100 mg tablet 100 mg PO QPM mirtazapine 15 mg tablet HS testosterone cypionate 200 mg/mL oil 200 mg IM Q2W quetiapine 50 mg tablet 50 - 100 mg PO QPM PRN thyroid (pork) [DERMATOLOGY PROCEDURAL PHYSICIAN Thyroid] 30 mg tablet 30 mg PO DAILY hydrocodone-acetaminophen .Route gabapentin 100 mg capsule 100 - 200 mg PO DAILY PRN ketorolac 10 mg tablet 10 mg PO TID 5 Days Qty: 15 0RF clonidine HCl 0.1 mg tablet 0.1 mg PO 3XD PRN (Reason: anxiety) hydrocodone-acetaminophen 10-325 mg tablet 1 tab PO BID PRN (Reason: severe pain) Follow Up/Referrals: Provider,Not a Local [Primary Care Provider, Family Practice] [facility] Inst[facility]
[2025-03-16 15:26] VITALS: PULSE 99
[2025-03-16] MEDS: LIDOCAINE 1% 5 ml (pf) 5 ML VIAL 1 ML IM (15:27)
[2025-03-16] MEDS: cefTRIAXone 500 MG VIAL IM (15:27)
== END 2025-03-16 15:51 | disposition home or self-care (01) ==
LOC: ED 15:13
PROVIDERS: Emergency Provider Family Medicine
DX: L03.012 Cellulitis of left finger (principal)
CPT/HCPCS: 73140; 96372; 99283; 99284; J0696